=== PATIENT | male | born 1965 | race Caucasian/White ===

== ENCOUNTER 2020-10-06 03:39 | Emergency (ER) | payer SELFPAY ==
[~2020-10-06] VITALS: Ht 175.3 cm; Wt 68.0 kg
[2020-10-06 05:35] VITALS: BP 138/74
== END 2020-10-06 05:36 | disposition home or self-care (01) ==
LOC: ER 03:39
DX: R06.02 Shortness of breath (principal); Z20.822 Contact with and (suspected) exposure to COVID-19; E78.00 Pure hypercholesterolemia, unspecified
CPT/HCPCS: 87635; 93005; 99284